=== PATIENT | male | born 1950 | race Caucasian/White ===

== ENCOUNTER 2017-01-08 14:11 | Emergency (ER) | payer MEDICARE, MEDICAID ==
[~2017-01-08] VITALS: Ht 162.6 cm; Wt 67.0 kg
[~2017-01-08 14:11] MED LIST: AMLO2.5T45 PO; LOSA50TA20 PO; SULF1TAB48 PO; TAMS0.4C31 PO
[2017-01-08] MEDS ORDERED: DIPHENHYDRAMINE 50MG/ML VIAL IM ONE (18:45)
[2017-01-08 19:42] VITALS: BP 115/72
== END 2017-01-08 22:30 | disposition home or self-care (01) ==
LOC: ER 22:27
DX: T63.301A Toxic effect of unspecified spider venom, accidental (unintentional), initial encounter (principal); I10 Essential (primary) hypertension; Y92.89 Other specified places as the place of occurrence of the external cause
CPT/HCPCS: 96372; 99283; J1200